=== PATIENT | female | born 1955 | race Caucasian/White ===

== ENCOUNTER 2017-11-22 09:31 | Outpatient (CLI) | payer OTHER | END 2017-11-22 09:32 | disposition home or self-care (01) | LOC: BICMAMMO 09:31 | PROVIDERS: ATTEND Internal Medicine | DX: R92.2 Inconclusive mammogram (principal); N63.11 Unspecified lump in the right breast, upper outer quadrant | CPT/HCPCS: G0279 ==

== ENCOUNTER 2017-12-13 07:45 | Outpatient (CLI) | payer OTHER ==
[2017-12-13 09:20] LABS: #Basophils 0.1 thou/uL (0.0-0.2); #Eosinphils 0.3 thou/uL (0.0-0.7); #Lymphocytes 2.7 thou/uL (1.20-3.40); #Monocytes 0.7 thou/uL (0.11-0.59); #Neutrophils 6.8 thou/uL (1.40-6.50); %Basophils 1.1 % (0.0-1.0); %Eosinophils 2.9 % (0.0-10.0); %Lymphocytes 25.3 % (21.0-51.0); %Monocytes 6.3 % (0.0-10.0); %Neutrophils 64.3 % (42.0-75.0); Mean Corpuscular HGB CONC 31.9 g/dL (32.0-36.0); Mean Corpuscular Hemoglobin 28.1 pg (27.0-31.0); Mean Corpuscular Volume 88.2 fL (78.0-98.0); Mean Platelet Volume 6.5 fL (7.4-10.4); Platelet Count 434 thou/uL (130-400); RBC Distribution Width 12.8 % (11.5-14.5); Red Blood Cell (RBC) Count 5.35 mill/uL (4.20-5.40); White Blood Cell (WBC) Count 10.6 thou/uL (4.8-10.8)
[2017-12-13 09:53] LABS: Anion Gap 15 mmol/L (10-20); BUN (Urea Nitrogen) 11 mg/dL (9.8-20.1); Calc. Creatinine Clearance 0 mL/min (70-130); Carbon Dioxide 28 mmol/L (23-31); Chloride 102 mmol/L (98-107); Estimated GFR-MDRD 80; Glucose 105 mg/dL (80-115); Potassium 4.6 mmol/L (3.5-5.1); Sodium 140 mmol/L (136-145)
== END 2017-12-13 07:46 | disposition home or self-care (01) ==
LOC: LABBT 07:45
PROVIDERS: ATTEND Surgery
DX: Z01.812 Encounter for preprocedural laboratory examination (principal); C50.911 Malignant neoplasm of unspecified site of right female breast
CPT/HCPCS: 80048; 85025

== ENCOUNTER → 2017-12-14 | Day surgery (SDC) | payer OTHER ==
[2017-12-13 08:13] VITALS: BMI 37.2
[~2017-12-14] MED LIST: Bupivacaine/Epinephrine 0.25% 30 ML VIAL ONE; Fentanyl 100 MCG/2 ML VIAL ONE; Fentanyl 250 MCG/5 ML VIAL ONE; HYDROcodone/Acetaminophen 5/325 mg Tablet ONE; Ketorolac Tromethamine 30 MG/ML VIAL ONE; Lidocaine 1% PF 5 ML VIAL ONE; Metoclopramide HCl 10 MG/2 ML VIAL ONE; Ondansetron HCl/PF 4 MG/2 ML Vial ONE; PROPOFOL 200 MG/20 ML VIAL ONE; PROVENTIL INHALER 6.7 G (200 INHALATIONS) ONE
--- NOTE | 2017-12-14 14:26 | NM ---
NUCLEAR MEDICINE LYMPHOSCINTIGRAPHY: HISTORY: Malignant neoplasm of the right breast. Evaluate for sentinel lymph node. COMPARISON: None. TECHNIQUE: The patient was administered 0.417 mCi of Technetium 99m filtered sulfur colloid. Radiotracer was in jected subcutaneously at the 12 o'clock, 3 o'clock, 6 o'clock, and 9 o'clock positions with respect t o the nipple. Imaging was performed immediately, 1 hour, 2 hours, and 3 hours. FINDINGS: Despite 3-hour imaging, sentinel lymph node is not appreciated. The patient was taken to surgery. IMPRESSION: Lymphoscintigraphy as above. POS: REBECA
--- NOTE | 2017-12-14 15:19 | MMO ---
SPECIMEN RADIOGRAPH: HISTORY: Needle localization of clip in mass. FINDINGS: A biopsy clip and mass density are seen on this specimen radiograph. IMPRESSION: Successful biopsy. The biopsy clip is in place and a density which appears to represent the mass is also present on the specimen radiograph. POS: REBECA
--- NOTE | 2017-12-15 08:50 | MMO ---
RIGHT BREAST NEEDLE LOCALIZATION: HISTORY: Known right breast cancer. COMPARISON: 12/01/17. FINDINGS: Successful needle localization for surgery in a patient with known right breast cancer. The needle i s adjacent to the mass and biopsy clip. TECHNIQUE: Consent was obtained to perform a right breast needle localization for surgical removal of known [address] cancer. The patient's breast was compressed in the CC projection. Biopsy clip was identified. T he skin was prepped and draped in sterile fashion. 1% Lidocaine, buffered with sodium bicarbonate, w as used for local anesthesia. A 10 cm [place] needle was advanced via the CC projection. Needle posit ion was confirmed. The patient was subsequently placed in a lateral medial compression. Needle posi tion was confirmed and is adjacent to the mass and clip. Wire was deployed. Post-deployment images were obtained. IMPRESSION: Successful right breast needle localization. POS: IONA
--- NOTE | 2017-12-15 15:02 | OP ---
DATE OF PROCEDURE: 12/19/2017 PREOPERATIVE DIAGNOSIS: Right breast cancer. POSTOPERATIVE DIAGNOSIS: Right breast cancer. PROCEDURES: 1. Right breast partial mastectomy after needle localization. 2. Right axillary dissection after failed sentinel node protocol. SURGEON: Jason Anand M.D. ANESTHESIA: General. ESTIMATED BLOOD LOSS: Minimal. COMPLICATIONS: None. SPECIMEN: Right partial mastectomy specimen marked with two short superior, one long lateral and sen t to path for final diagnosis. FINDINGS: Right axillary contents. PROCEDURE IN DETAIL: The patient was taken to the operating room and laid supine on the operating ro om table. Her sentinel node protocol failed to have uptake in the right axilla. Her right chest, ax illa was all prepped and draped in a sterile fashion. Needle localization wire was in the far right upper quadrant of the right breast in the breast tail. Incision was made below the needle entrance s ite. Flaps were raised superiorly, inferiorly, laterally all the way around the end of needle locali zation wire. The specimen is marked and sent to path for final diagnosis. The wound was irrigated. Next, incision was extended laterally to the inferior hair edge of the right axilla, it was very cr se proximity and through the same incision, an axillary dissection was performed. Clavipectoral fasc ia was entered exposing the right axillary vein. The no name vein was taken down below this using th e LigaSure. The long thoracic and thoracodorsal nerves were found and excluded from the dissection. The intercostal brachial nerve was taken as were all small lymphatics using the LigaSure. Level 1 a nd 2 lymph nodes sent to path for final diagnosis. The wound is irrigated, 19 round drain brought ou t through a separate stab incision left in the right axilla, sewn in place using a silk suture. The wounds are irrigated and closed using 3-0 Vicryl, 4-0 Monocryl, and Dermabond. Tegaderm was placed a t the drain exit site. The patient en route to recovery in stable condition. All instrument counts, needle counts, lap counts were correct.
--- NOTE | 2017-12-17 17:14 | EKG ---
Test Reason : Blood Pressure : / mmHG Vent. Rate : 058 BPM Atrial Rate : 058 BPM P-R Int : 168 ms QRS Dur : 114 ms QT Int : 466 ms P-R-T Axes : -29 024 -11 degrees QTc Int : 457 ms Sinus bradycardia Low voltage QRS Incomplete right bundle branch block Borderline ECG No previous ECGs available Confirmed by CHRISTOPHER MARTIN ([id number]) on 12/17/2017 5:13:30 PM Referred By: NORBERT Confirmed By:CHRISTOPHER MARTIN
== END ==
LOC: SDC 06:37
PROVIDERS: ATTEND Surgery
PROC: 0HBT0ZZ Excision of Right Breast, Open Approach (ICD-10-PCS; principal; 2017-12-14)
PROC: 07T50ZZ Resection of Right Axillary Lymphatic, Open Approach (ICD-10-PCS; principal; 2017-12-14)
DX: C50.411 Malignant neoplasm of upper-outer quadrant of right female breast (principal); I10 Essential (primary) hypertension; E11.9 Type 2 diabetes mellitus without complications; I25.10 Atherosclerotic heart disease of native coronary artery without angina pectoris; E03.9 Hypothyroidism, unspecified; E66.9 Obesity, unspecified; Z68.37 Body mass index [BMI] 37.0-37.9, adult; Z17.1 Estrogen receptor negative status [ER-]; Z79.82 Long term (current) use of aspirin; Z79.84 Long term (current) use of oral hypoglycemic drugs; Z79.899 Other long term (current) drug therapy; Z88.2 Allergy status to sulfonamides; Z88.8 Allergy status to other drugs, medicaments and biological substances
CPT/HCPCS: 19281; 76098; 78195; 88307; 88341; 88342; 88360; 93005; 93010; 96374; A9541; J0131; J1885; J2001; J2405; J2704; J2765; J3010; Q9968

== ENCOUNTER 2017-12-28 09:39 | Day surgery (SDC) | payer OTHER ==
[2017-12-27 11:14] VITALS: BMI 37.2
[2017-12-28] MEDS ORDERED: Midazolam HCl 2 mg/2 ml Vial ONE (10:24)
[2017-12-28] MEDS ORDERED: CEFAZOLIN/Water 2 GM/20 ML SYRINGE ONE (10:24)
[2017-12-28] MEDS ORDERED: Heparin 10,000 UNITS/1 ML VIAL ONE (10:31)
[2017-12-28] MEDS ORDERED: Heparin 5,000 UNITS/ML VIAL ONE (10:31)
[2017-12-28] MEDS ORDERED: Bupivacaine/Epinephrine 0.25% 30 ML VIAL ONE (10:31)
[2017-12-28] MEDS ORDERED: Lidocaine 2% PF Inj 2 ML VIAL ONE (10:39)
[2017-12-28] MEDS ORDERED: ePHEDrine/0.9% NaCl/PF SYRINGE 50 mg/10 ml ONE (13:22)
[2017-12-28] MEDS ORDERED: Lidocaine 1% PF 5 ML VIAL ONE (13:22)
[2017-12-28] MEDS ORDERED: Ondansetron HCl/PF 4 MG/2 ML Vial ONE (13:22)
[2017-12-28] MEDS ORDERED: Dexamethasone 20 MG/5 ML VIAL ONE (13:22)
[2017-12-28] MEDS ORDERED: PROPOFOL 200 MG/20 ML VIAL ONE (13:22)
--- NOTE | 2017-12-28 15:33 | RAD ---
PORTABLE CHEST: Date: 12/28/17 PROVIDED CLINICAL HISTORY: Status post MediPort placement. FINDINGS: No comparisons. Cardiac and mediastinal silhouette is within normal limits for portable technique. Left IJ implanted port is noted, tip of which projects in the expected location of cavoatrial junction. The cranial mos t aspects of the catheter are not included on the image. No focal consolidation, pleural fluid, or pn eumothorax apparent. IMPRESSION: Status post MediPort placement without evidence for complication. POS: IONA
--- NOTE | 2017-12-29 11:38 | OP ---
DATE OF PROCEDURE: 12/28/2017 PREOPERATIVE DIAGNOSIS: Right breast cancer. POSTOPERATIVE DIAGNOSIS: Right breast cancer. PROCEDURE: Tunneled central line subcutaneous port (MediPort, CT injectable). SURGEON: Jason Anand M.D. ANESTHESIA: General. ESTIMATED BLOOD LOSS: Minimal. COMPLICATIONS: None. SPECIMENS: None. FINDINGS: Tip of the catheter was at the atriocaval junction. TECHNIQUE: The patient was taken to the operating room and placed supine on the table. After genera l anesthetic was obtained, bilateral neck and chest was prepped and draped in a sterile fashion. Loc al anesthetic infiltrated over the right internal jugular vein. Intrajugular vein cannulated using a 22-gauge finder needle followed by a Seldinger needle. Wire was passed into the superior vena cava under fluoroscopic guidance. A small ludivina was made at the wire entrance site. A separate 3-cm incis ion made in the left upper chest. Subcutaneous pocket made below the lower incision. Tubing for the MediPort tunneled from the inferior to superior incision. Introducer sheath was placed over the wir e into the superior vena cava. The dilator and wire removed and the catheter site into the sheath an d the sheath was peeled away. The tip of the catheter was at the atriocaval junction. MediPort tubi ng was cut to fit the MediPort at the lower incision. Tubing connected to the MediPort which was sew n to the chest wall in the subcutaneous pocket using Prolene. The wounds were irrigated. The MediPo rt flushes and draws blood without difficulties. It flushed with a heparin flush. The wounds were i rrigated and closed using 4-0 Monocryl and Dermabond. The patient was en route to recovery in stable condition. All instrument counts, needle counts, lap counts were correct.
== END 2017-12-28 13:29 | disposition home or self-care (01) ==
LOC: SDC 09:39
PROVIDERS: ATTEND Surgery
PROC: 0JH63WZ Insertion of Totally Implantable Vascular Access Device into Chest Subcutaneous Tissue and Fascia, Percutaneous Approach (ICD-10-PCS; principal; 2017-12-28)
DX: C50.911 Malignant neoplasm of unspecified site of right female breast (principal); I10 Essential (primary) hypertension; E11.9 Type 2 diabetes mellitus without complications; I25.10 Atherosclerotic heart disease of native coronary artery without angina pectoris; E89.0 Postprocedural hypothyroidism; E66.9 Obesity, unspecified; Z68.37 Body mass index [BMI] 37.0-37.9, adult; Z17.1 Estrogen receptor negative status [ER-]; Z79.82 Long term (current) use of aspirin; Z79.84 Long term (current) use of oral hypoglycemic drugs; Z79.899 Other long term (current) drug therapy; Z88.2 Allergy status to sulfonamides; Z88.8 Allergy status to other drugs, medicaments and biological substances
CPT/HCPCS: 71045; 81001; 87086; C1788; J1100; J1642; J1644; J2001; J2250; J2405; J2704

== ENCOUNTER 2018-01-07 19:47 | Emergency (ER) | payer OTHER ==
[2018-01-07 21:10] LABS: Hemoglobin 14.2 g/dL (12.0-16.0); Mean Corpuscular HGB CONC 33.3 g/dL (32.0-36.0); Mean Corpuscular Hemoglobin 29.1 pg (27.0-31.0); Mean Corpuscular Volume 87.4 fL (78.0-98.0); Mean Platelet Volume 7.4 fL (7.4-10.4); Platelet Count 309 thou/uL (130-400); RBC Distribution Width 12.5 % (11.5-14.5); Red Blood Cell (RBC) Count 4.87 mill/uL (4.20-5.40); White Blood Cell (WBC) Count 4.9 thou/uL (4.8-10.8)
[2018-01-07] MEDS ORDERED: Loperamide HCl 2 MG CAP ONE (21:24)
[2018-01-07 21:25] LABS: Band 12 % (5-11); Eosinophils 2 % (0-10); Lymphocytes 38 % (21-51); MDiff Complete? YES; Monocytes 19 % (0-10); Neutrophil 20 % (42-75); PLT Morphology Comment Appears Adequate; Reactive Lymphocytes 9 % (0-10)
[2018-01-07 21:29] LABS: ALT (SGPT) 27 U/L (8-55); AST (SGOT) 20 U/L (5-34); Alkaline Phosphatase 65 U/L (40-150); Anion Gap 16 mmol/L (10-20); BUN (Urea Nitrogen) 12 mg/dL (9.8-20.1); Bilirubin, Total 0.4 mg/dL (0.2-1.2); Calc. Creatinine Clearance 0 mL/min (70-130); Calcium 9.3 mg/dL (7.8-10.44); Carbon Dioxide 24 mmol/L (23-31); Chloride 100 mmol/L (98-107); Estimated GFR-MDRD 79; Globulin 2.8 g/dL (2.4-3.5); Glucose 132 mg/dL (80-115); Potassium 3.9 mmol/L (3.5-5.1); Protein, Total 6.8 g/dL (6.0-8.3); Sodium 136 mmol/L (136-145)
--- NOTE | 2018-01-07 22:23 | CT ---
CT OF ABDOMEN AND PELVIS PERFORMED WITHOUT CONTRAST ENHANCEMENT: History: Abdominal pain. History of breast cancer. Comparison: None. FINDINGS: The lung bases show linear atelectatic change. No pulmonary nodules or pleural effusions. Coronary ar jakob calcifications are present. The liver and spleen show no focal abnormalities. The pancreas and gallbladder regions appear unremar kable. There is a large hypodense mass involving the right kidney. It has some minimal peripheral calcificat ions and therefore does not totally constitute as a simple cyst but CT numbers would suggest that it is cystic in nature. It measures 8.2 cm. This is incompletely characterized on a noncontrast study. N o obstruction of either kidney. No significant periaortic or mesenteric lymphadenopathy. CT OF PELVIS PERFORMED WITHOUT CONTRAST ENHANCEMENT: The appendix is normal in appearance. There is some minimal sigmoid diverticulosis. No adenopathy, ma ss or free fluid. Review of osseous structures show arthritic changes of the spine. IMPRESSION: No acute abnormalities of the abdomen or pelvis. Incidental findings as noted above. POS: REBECA
== END 2018-01-07 21:57 | disposition home or self-care (01) ==
LOC: ERS 19:47
DX: M79.10 Myalgia, unspecified site (principal); R19.7 Diarrhea, unspecified; I10 Essential (primary) hypertension; E11.9 Type 2 diabetes mellitus without complications; E78.00 Pure hypercholesterolemia, unspecified; F29 Unspecified psychosis not due to a substance or known physiological condition; Z79.899 Other long term (current) drug therapy; Z79.84 Long term (current) use of oral hypoglycemic drugs; Z79.82 Long term (current) use of aspirin
CPT/HCPCS: 74176; 80053; 85025; 93005; 96374; J2270

== ENCOUNTER 2018-06-06 09:02 | Outpatient (CLI) | payer BC ==
--- NOTE | 2018-06-06 09:48 | ULT ---
BILATERAL RENAL ULTRASOUND: HISTORY: UTI and hematuria. FINDINGS: The right kidney measures 12.7 cm in length and the left kidney measures 11.5 cm in length. There is an 8.7 x 6.3 x 7.1 cm cyst arising from the right kidney. No hydronephrosis is seen on either side. The urinary bladder is well distended and has a normal appearance. IMPRESSION: Large right renal cyst measuring 8.7 x 6.3 x 7.1 cm. POS: C
== END 2018-06-06 09:03 | disposition home or self-care (01) ==
LOC: BICULT 09:02
PROVIDERS: ATTEND Urology
DX: N39.0 Urinary tract infection, site not specified (principal); R31.9 Hematuria, unspecified; N28.1 Cyst of kidney, acquired
CPT/HCPCS: 76770

== ENCOUNTER 2018-06-22 00:52 | Emergency (ER) | payer BC ==
[2018-06-22 01:26] LABS: Bilirubin Negative (Negative); Blood, Urine Large (Negative); Clarity Cloudy (Clear); Glucose, Urine (Dipstick) Negative (Negative); Leukocyte Moderate (Negative); Nitrite Negative (Negative); Protein, Urine (Dipstick) 100 mg/dL (Neg-Trace); Specific Gravity, Urine 1.025 (1.005-1.030); Urobilinogen 0.2 mg/dL (0.2-1.0)
[2018-06-22 01:27] LABS: Pathc Cast-AUWi Flag 2.92 (0-2.49); RBC/HPF GREATER THAN 50-TNTC HPF (0-3); Squamous Epithelial 0-3 HPF (0-3)
[2018-06-22 01:34] LABS: Bacteria/HPF Rare-Few HPF (None Seen); Hyaline Casts/LPF 0-3 HYALINE CAST LPF (0-3 Hyaline); Manual Microscopic Reviewed? No Path Casts Seen
== END 2018-06-22 01:40 | disposition home or self-care (01) ==
LOC: ERS 00:52
DX: N30.90 Cystitis, unspecified without hematuria (principal); I10 Essential (primary) hypertension; E11.9 Type 2 diabetes mellitus without complications; E78.00 Pure hypercholesterolemia, unspecified; Z79.84 Long term (current) use of oral hypoglycemic drugs; Z79.82 Long term (current) use of aspirin; Z79.899 Other long term (current) drug therapy
CPT/HCPCS: 81003; 81015; 99283

== ENCOUNTER 2018-12-12 09:23 | Outpatient (CLI) | payer MEDICARE, OTHER ==
--- NOTE | 2018-12-12 10:24 | BD ---
DEXA BONE DENSITY STUDY: Date: 12/12/18 HISTORY: Postmenopausal female. Osteoporosis screening. COMPARISON: None. FINDINGS: Lumbar Spine: BMD (g/cm2) L1 0.989 T-Score: 0.0 Z-Score: 1.6 L2 0.973 T-Score: -0.5 Z-Score: 1.2 L3 0.945 T-Score: -1.3 Z-Score: 0.6 L4 0.914 T-Score: -1.3 Z-Score: 0.6 L1-L4 0.952 T-Score: -0.9 Z-Score: 0.9 Left Femoral Neck: 0.670 T-Score: -1.6 Z-Score: -0.1 Total Femur: 0.983 T-Score: 0.3 Z-Score: 1.6 WHO Classification: Osteopenia. 10 YEAR FRACTURE RISK: Major osteoporotic fracture: 8.5% Hip fracture: 0.9% IMPRESSION: Osteopenia with elevated fracture risk as above. POS: REBECA
--- NOTE | 2018-12-12 10:26 | MMO ---
Bilateral MAMMO Bilat Diag DDI+ALIZA. CLINICAL HISTORY: Patient is 63 years old and is seen for diagnostic exam. VIEWS: The views performed were: . FILMS COMPARED: The present examination has been compared to prior imaging studies performed at [facility] on 10/08/2014, 11/12/2015, 11/14/2017 and 11/22/2017. This study has been interpreted with the assistance of computer-aided detection. MAMMOGRAM FINDINGS: There are scattered fibroglandular densities. Benign calcifications are noted bilaterally. There are stable post-operative/ XRT changes on the right. There are no suspicious masses, suspicious calcifications, or new areas of architectural distortion. IMPRESSION: THERE IS NO MAMMOGRAPHIC EVIDENCE OF MALIGNANCY. A ROUTINE FOLLOW-UP MAMMOGRAM IN 1 YEAR IS RECOMMENDED. THE RESULTS OF THIS EXAM WERE SENT TO THE PATIENT. ACR BI-RADS Category 2 - Benign finding MAMMOGRAPHY NOTE: 1. A negative mammogram report should not delay a biopsy if a dominant of clinically suspicious mass is present. 2. Approximately 10% to 15% of breast cancers are not detected by mammography. 3. Adenosis and dense breasts may obscure an underlying neoplasm. Reported by: SALLY GOLDBERG MD Electonically Signed: [id number]
== END 2018-12-12 09:24 | disposition home or self-care (01) ==
LOC: BICMAMMO 09:23
PROVIDERS: ATTEND Internal Medicine Hematology & Oncology
DX: C50.411 Malignant neoplasm of upper-outer quadrant of right female breast (principal); Z78.0 Asymptomatic menopausal state; M85.89 Other specified disorders of bone density and structure, multiple sites
CPT/HCPCS: 77066; 77080; G0279

== ENCOUNTER 2019-03-29 09:17 | Outpatient (CLI) | payer MEDICARE ==
--- NOTE | 2019-03-29 13:05 | CT ---
EXAM: CT Abdomen Pelvis W WO con PROVIDED CLINICAL HISTORY: Hematuria COMPARISON: 01/07/2018 FINDINGS: The visualized lung bases are free of significant opacity. There is a exophytic cystic structure emanating from the anterolateral aspect of the midportion of th e right kidney. This demonstrates decrease in size with respect to the prior study, now measuring about 3.7 cm in greatest transverse dimensions (as compared to about 8.3 cm on prior). There is assoc iated calcification involving the wall of this cyst. There is no evidence for internal septation or mural nodule. No solid component is evident. The liver, spleen, pancreas, left kidney and adrenal glands appear unremarkable. There is no evidence for urinary tract calculi or hydronephrosis. The delayed images demonstrate no evidence for filling defect involving the renal collecting systems, opacified ureters or urinary bladder. There is no bowel dilatation, inflammatory fat stranding or free intraperitoneal fluid apparent. Ther e is a single mildly enlarged peripancreatic lymph node, measuring 11 mm in short axis. No additional lymph node enlargement is evident. Vascular calcification including coronary calcium is demonstrated. The osseous structures demonstrate no concerning lytic or blastic lesions. IMPRESSION: 1. Bosniak category 2F right renal cyst. 2. Single mildly enlarged peripancreatic lymph node, nonspecific. 3. Atherosclerosis.
== END 2019-03-29 09:18 | disposition home or self-care (01) ==
LOC: BICCT 09:17
PROVIDERS: ATTEND Internal Medicine
DX: R31.9 Hematuria, unspecified (principal); N28.1 Cyst of kidney, acquired; I70.90 Unspecified atherosclerosis; R59.9 Enlarged lymph nodes, unspecified
CPT/HCPCS: 74177; 74178

== ENCOUNTER 2019-12-17 10:05 | Outpatient (CLI) | payer MEDICARE ==
--- NOTE | 2019-12-17 10:43 | MMO ---
Bilateral MAMMO Bilat Diag DDI+ALIZA. CLINICAL HISTORY: Patient is 64 years old and is seen for diagnostic exam. The patient has no family history of breast cancer. The patient has a history of malignant (generic) in the right breast in November,. The patient has a history of right Lumpectomy in November, - malignant. VIEWS: The views performed were: bilateral craniocaudal with tomosynthesis; bilateral mediolateral oblique with tomosynthesis; bilateral mediolateral with tomosynthesis; and right exaggerated craniocaudal with tomosynthesis. FILMS COMPARED: The present examination has been compared to prior imaging studies performed at [facility] on 11/12/2015, 11/14/2017, 11/22/2017 and 12/12/2018. This study has been interpreted with the assistance of computer-aided detection. MAMMOGRAM FINDINGS: There are scattered fibroglandular densities. There is a post-surgical scar seen in the upper-outer region of the right breast. There are no suspicious masses, suspicious calcifications, or new areas of architectural distortion. IMPRESSION: THERE IS NO MAMMOGRAPHIC EVIDENCE OF MALIGNANCY. A ROUTINE FOLLOW-UP MAMMOGRAM IN 1 YEAR IS RECOMMENDED. THE RESULTS OF THIS EXAM WERE SENT TO THE PATIENT. ACR BI-RADS Category 2 - Benign finding MAMMOGRAPHY NOTE: 1. A negative mammogram report should not delay a biopsy if a dominant of clinically suspicious mass is present. 2. Approximately 10% to 15% of breast cancers are not detected by mammography. 3. Adenosis and dense breasts may obscure an underlying neoplasm. Reported by: LUIS FERNANDO SHELBY MD Electonically Signed: [id number]
--- NOTE | 2019-12-17 11:40 | BD ---
BONE DENSITOMETRY USING DEXA: HISTORY: Postmenopausal screening for osteoporosis. FINDINGS: Lumbar Spine: BMD (g/cm2) L1 0.986 T-Score: 0.0 Z-Score: 1.6 L2 0.958 T-Score: -0.6 Z-Score: 1.2 L3 1.016 T-Score: -0.6 Z-Score: 1.3 L4 0.902 T-Score: -1.4 Z-Score: 0.5 L1-L4 0.962 T-Score: -0.8 Z-Score: 1.1 Femoral Neck: 0.648 T-Score: -1.8 Z-Score: 0.2 Total Femur: 0.910 T-Score: -0.3 Z-Score: 1.0 There has been interval improvement of 1.1% in the BMD of the lumbar spine and a reduction of 7.4% in the BMD of the proximal femur since 12/12/2018. The 10-year fracture risk for a major osteoporotic fracture is 9.4% and for a hip fracture is 1.2%. Impression: Osteopenia. POS: AH
== END 2019-12-17 10:06 | disposition home or self-care (01) ==
LOC: BICMAMMO 10:05
PROVIDERS: ATTEND Internal Medicine Hematology & Oncology
DX: Z13.820 Encounter for screening for osteoporosis (principal); N95.8 Other specified menopausal and perimenopausal disorders; M85.89 Other specified disorders of bone density and structure, multiple sites; Z85.3 Personal history of malignant neoplasm of breast
CPT/HCPCS: 77066; 77080; G0279

== ENCOUNTER 2020-01-03 09:05 | Outpatient (CLI) | payer MEDICARE, OTHER ==
--- NOTE | 2020-01-03 10:34 | ULT ---
Exam: Bilateral renal ultrasound HISTORY: Complex cyst COMPARISON: None Correlation: Abdomen and pelvic CT 03/29/2019 FINDINGS: Right kidney: Normal cortical echotexture. No hydronephrosis. Redemonstration of a exophytic predomin antly anechoic focus measuring 3.7 x 2.8 x 4.5 cm. There is evidence of peripheral calcifications. Complex cyst is favored. Right kidney measurements: 12.1 x 4.5 x 4.5 cm. Left kidney: Normal cortical echotexture. No hydronephrosis Left kidney measurements 12.3 x 5.5 x 5.2 cm. Urinary bladder: Normal mucosa. 170 mL bladder volume. IMPRESSION: 1. Redemonstration of a predominantly anechoic focus emanating from the right kidney with associated peripheral calcifications. Findings are similar to a previous CT. On that exam, the complex cyst measured 3.7 cm in greatest dimension.
== END 2020-01-03 09:06 | disposition home or self-care (01) ==
LOC: BICULT 09:05
PROVIDERS: ATTEND Urology
DX: N28.1 Cyst of kidney, acquired (principal); N28.89 Other specified disorders of kidney and ureter
CPT/HCPCS: 76770

== ENCOUNTER 2020-12-18 12:08 | Outpatient (CLI) | payer MEDICARE, OTHER | END 2020-12-18 12:09 | disposition home or self-care (01) | LOC: BICMAMMO 12:08 | PROVIDERS: ATTEND Internal Medicine Hematology & Oncology | DX: C50.411 Malignant neoplasm of upper-outer quadrant of right female breast (principal) | CPT/HCPCS: 77066; G0279 ==

== ENCOUNTER 2020-12-23 10:09 | Outpatient (CLI) | payer MEDICARE, OTHER | END 2020-12-23 10:10 | disposition home or self-care (01) | LOC: BICULT 10:09 | PROVIDERS: ATTEND Urology | DX: N28.1 Cyst of kidney, acquired (principal) | CPT/HCPCS: 76770 ==

== ENCOUNTER 2021-12-21 10:15 | Outpatient (CLI) | payer MEDICARE, OTHER | END 2021-12-21 10:16 | disposition home or self-care (01) | LOC: BICMAMMO 10:15 | PROVIDERS: ATTEND Internal Medicine Hematology & Oncology | DX: C50.411 Malignant neoplasm of upper-outer quadrant of right female breast (principal); R92.1 Mammographic calcification found on diagnostic imaging of breast; R92.2 Inconclusive mammogram; Z98.890 Other specified postprocedural states | CPT/HCPCS: 77066; G0279 ==

== ENCOUNTER 2022-01-10 10:39 | Outpatient (CLI) | payer MEDICARE | END 2022-01-10 10:40 | disposition home or self-care (01) | LOC: BICULT 10:39 | PROVIDERS: ATTEND Urology | DX: N28.1 Cyst of kidney, acquired (principal) | CPT/HCPCS: 76770 ==

== ENCOUNTER 2022-04-12 07:41 | Outpatient (CLI) | payer MEDICARE, OTHER ==
[2022-04-12] MEDS ORDERED: Iopamidol-370 76% 500 ML 1 ML ONE (12:53)
== END 2022-04-12 07:42 | disposition home or self-care (01) ==
LOC: BICCT 07:41
PROVIDERS: ATTEND Urology
DX: N28.1 Cyst of kidney, acquired (principal)
CPT/HCPCS: 74170; 82565

== ENCOUNTER 2023-09-13 12:58 | Outpatient (CLI) | payer MEDICARE | END 2023-09-13 12:59 | disposition home or self-care (01) | LOC: BICMAMMO 12:58 | PROVIDERS: ATTEND Internal Medicine | DX: Z13.820 Encounter for screening for osteoporosis (principal); Z78.0 Asymptomatic menopausal state; M85.89 Other specified disorders of bone density and structure, multiple sites | CPT/HCPCS: 77080 ==

== ENCOUNTER 2023-12-28 10:23 | Outpatient (CLI) | payer MEDICARE | END 2023-12-28 10:24 | disposition home or self-care (01) | LOC: BICMAMMO 10:23 | PROVIDERS: ATTEND Internal Medicine Hematology & Oncology | DX: Z12.31 Encounter for screening mammogram for malignant neoplasm of breast (principal); Z85.3 Personal history of malignant neoplasm of breast; Z98.890 Other specified postprocedural states | CPT/HCPCS: 77063; 77067 ==

== ENCOUNTER 2024-12-30 10:51 | Outpatient (CLI) | payer MEDICARE | END 2024-12-30 10:52 | disposition home or self-care (01) | LOC: BICMAMMO 10:51 | PROVIDERS: ATTEND Internal Medicine Hematology & Oncology | DX: Z12.31 Encounter for screening mammogram for malignant neoplasm of breast (principal); Z85.3 Personal history of malignant neoplasm of breast; Z98.890 Other specified postprocedural states | CPT/HCPCS: 77063; 77067 ==